=== PATIENT | female | born 1950 | race Caucasian/White ===

== ENCOUNTER 2016-11-21 08:06 | Inpatient (IN) | payer MEDICARE, BC ==
[~2016-11-21] VITALS: Ht 167.6 cm; Wt 92.1 kg
[~2016-11-21 08:06] MED LIST: ASA PO; COUM5TAB PO; ETANERCEPT IM; HYDR200T42 PO; LORT7.5T3 PO; NEUR600T PO; TAB-TAB PO; iron PO; methotrexate SQ
[2016-11-21 08:08] VITALS: BP 174/94; PULSE 88; RESP 20; TEMP 98.8; O2SAT 95
[2016-11-21] MEDS ORDERED: CIMZ200K SQ (08:34)
[2016-11-21] MEDS ORDERED: METH0.35 SQ (08:37)
[2016-11-21] MEDS ORDERED: ONDANSETRON HCL 4 MG/2 ML VIAL IVP ONE (08:45)
[2016-11-21] MEDS ORDERED: MORPHINE SULFATE 8 MG/ML INJ IV PUSH ONE (08:45)
[2016-11-21 08:47] LABS: AUTOMATED NEUTROPHIL # 13.1 TH/MM3 (1.8-7.7); BASOPHIL % 0.3 % (0.0-2.0); EOSINOPHIL # 0.1 TH/MM3 (0-0.4); EOSINOPHIL % 0.4 % (0.0-4.0); HEMATOCRIT 44.8 % (35.0-46.0); HEMO FLAGS DIFF FINAL; LYMPH % 8.1 % (9.0-44.0); LYMPHOCYTE # 1.3 TH/MM3 (1.0-4.8); MEAN CELL VOLUME 88.8 FL (80.0-100.0); MEAN CORPUSCULAR HEMOGLOBIN 29.7 PG (27.0-34.0); MEAN CORPUSCULAR HGB CONC 33.4 % (32.0-36.0); MONO % 7.1 % (0.0-8.0); NEUT % 84.1 % (16.0-70.0); PLATELET COUNT 224 TH/MM3 (150-450); RED BLOOD COUNT 5.04 MIL/MM3 (4.00-5.30); RED CELL DISTRIBUTION WIDTH 14.3 % (11.6-17.2); WHITE BLOOD COUNT 15.6 TH/MM3 (4.0-11.0)
--- NOTE | 2016-11-21 08:55 | PD ---
HPI Chief Complaint: Abdominal Pain Time Seen by Provider: 08:32 Travel History International Travel<30 days: No Contact w/Intl Traveler<30days: No Traveled to known affect area: No History of Present Illness HPI 66-year-old female presents with upper abdominal pain that started on Friday. She states she went to see her primary yesterday and had blood work done and was supposed to have a CAT scan today but given she felt worse she elected to come here. She states she did not have the CAT scan yet. Quality of pain comes in waves and will get sharp. She denies recurrent history of this. She denies other concurrent complaints other than nausea. She denies any migration of the pain. Severity is moderate. PFSH Past Medical History Arthritis: Yes Blood Disorders: No Cancer: No Cardiovascular Problems: No Endocrine: No Genitourinary: No Immune Disorder: Yes Musculoskeletal: Yes Neurologic: No Psychiatric: No Reproductive: No Respiratory: No Tetanus Vaccination: < 5 Years Influenza Vaccination: Yes ?: Not Menopausal: Yes Past Surgical History Abdominal Surgery: Yes (gallbladder removed) Body Medical Devices: right hip replacement Joint Replacement: Yes (dave hips) Pacemaker: No Social History Alcohol Use: No Tobacco Use: No Substance Use: No Allergies-Medications (Allergen,Severity, Reaction): Coded Allergies: Bee Sting (Verified Allergy, Severe, SWELLING AT SITE OF STING, 08/23/08) Uncoded Allergies: GOLD SHOTS (Allergy, Severe, caused common bile blockage, 08/17/08) Reported Meds & Prescriptions Reported Meds & Active Scripts Active Reported Rasuvo (Methotrexate (Antirheumatic)) 20 Mg/0.4 Ml Inj 0.8 Ml SQ Q7D Cimzia (2 syringe) Kit Inj (Certolizumab Pegol Inj) 200 Mg/Ml Kit 400 Mg SQ Q30D Administer 2 syringes (400 mg) to separate sites. Review of Systems Except as stated in HPI: all other systems reviewed are Neg Physical Exam Narrative GENERAL: Well-nourished, well-developed patient. SKIN: Warm and dry. HEAD: Normocephalic and atraumatic. EYES: No injection or drainage. ENT: No nasal drainage noted. NECK: Supple, trachea midline. CARDIOVASCULAR: Regular rate and rhythm RESPIRATORY: Breath sounds equal bilaterally. No accessory muscle use. GASTROINTESTINAL: Abdomen soft, mild tenderness to bilateral upper quadrants, nondistended. EXTREMITIES: No edema. NEUROLOGICAL: Awake and alert. Moves all extremities. Normal speech. Data Data Last Documented VS Vital Signs Date Time Temp Pulse Resp B/P Pulse Ox O2 Delivery O2 Flow Rate FiO2 11/21/16 08:08 98.8 88 20 174/94 95 Room Air Orders Complete Blood Count With Diff (11/21/16 08:33) Comprehensive Metabolic Panel (11/21/16 08:33) Urinalysis - C+S If Indicated (11/21/16 08:33) Lipase (11/21/16 08:33) Ct Abd/Pel W Iv Contrast(Rout) (11/21/16 ) Iv Access Insert/Monitor (11/21/16 08:33) Ondansetron Inj (Zofran Inj) (11/21/16 08:45) Morphine Inj (Morphine Inj) (11/21/16 08:45) Iohexol 350 Inj (Omnipaque 350 Inj) (11/21/16 09:43) Amylase (11/21/16 10:20) Admit Order (Ed Use Only) (11/21/16 10:22) Labs Laboratory Tests Test 11/21/16 08:30 White Blood Count 15.6 TH/MM3 Red Blood Count 5.04 MIL/MM3 Hemoglobin 15.0 GM/DL Hematocrit 44.8 % Mean Corpuscular Volume 88.8 FL Mean Corpuscular Hemoglobin 29.7 PG Mean Corpuscular Hemoglobin 33.4 % Concent Red Cell Distribution Width 14.3 % Platelet Count 224 TH/MM3 Mean Platelet Volume 8.4 FL Neutrophils (%) (Auto) 84.1 % Lymphocytes (%) (Auto) 8.1 % Monocytes (%) (Auto) 7.1 % Eosinophils (%) (Auto) 0.4 % Basophils (%) (Auto) 0.3 % Neutrophils # (Auto) 13.1 TH/MM3 Lymphocytes # (Auto) 1.3 TH/MM3 Monocytes # (Auto) 1.1 TH/MM3 Eosinophils # (Auto) 0.1 TH/MM3 Basophils # (Auto) 0.0 TH/MM3 CBC Comment DIFF FINAL Differential Comment Sodium Level 137 MEQ/L Potassium Level 3.8 MEQ/L Chloride Level 105 MEQ/L Carbon Dioxide Level 23.4 MEQ/L Anion Gap 9 MEQ/L Blood Urea Nitrogen 12 MG/DL Creatinine 0.53 MG/DL Estimat Glomerular Filtration 115 ML/MIN Rate Random Glucose 112 MG/DL Calcium Level 9.2 MG/DL Total Bilirubin 1.6 MG/DL Aspartate Amino Transf 22 U/L (AST/SGOT) Alanine Aminotransferase 30 U/L (ALT/SGPT) Alkaline Phosphatase 122 U/L Total Protein 7.8 GM/DL Albumin 3.5 GM/DL Amylase Level 59 U/L Lipase 178 U/L MDM Medical Decision Making Medical Screen Exam Complete: Yes Emergency Medical Condition: Yes Medical Record Reviewed: Yes (past history confirm) Interpretation(s) CBC & BMP Diagram 11/21/16 08:30 Last 24 hours Impressions Abdomen/Pelvis CT 11/21/16 0000 Signed Impressions: Service Date/Time: November 09:30 - CONCLUSION: 1. Findings consistent with mild pancreatitis without evidence for peripancreatic fluid collection, pancreatic necrosis or other complications. Mild pancreatitis based on CT severity index of 2 (2: 2. inflamation without collection, 0:no necrosis). Reji Romo MD Differential Diagnosis Gastritis, pancreatitis, stone Narrative Course Will check blood work, urinalysis, CT scan and dose with morphine and Zofran and reevaluate ed workup with pancreatitis, patient updated and agrees to admission Physician Communication Physician Communication dr tate agrees to admit Diagnosis Primary Impression: Pancreatitis Qualified Code: K85.90 - Acute pancreatitis without infection or necrosis, unspecified pancreatitis type Admitting Information Admitting Physician Requests: Observation Brenda Nicole MD Nov 21, 2016 08:55
[2016-11-21 09:00] LABS: ANION GAP 9 MEQ/L (5-15); AST (GOT) 22 U/L (15-37); BICARBONATE 23.4 MEQ/L (21.0-32.0); BLOOD UREA NITROGEN 12 MG/DL (7-18); CHLORIDE 105 MEQ/L (98-107); GLOMERULAR FILTRATION RATE 115 ML/MIN (>89); POTASSIUM 3.8 MEQ/L (3.5-5.1); SODIUM (NA) 137 MEQ/L (136-145)
[2016-11-21 09:01] LABS: ALT (GPT) 30 U/L (10-53)
[2016-11-21 09:03] LABS: ALKALINE PHOSPHATASE 122 U/L (45-117); TOTAL BILIRUBIN ADULT 1.6 MG/DL (0.2-1.0)
[2016-11-21] MEDS ORDERED: IOHEXOL 350 MG/ML 10 ML VIAL (for RAD DIAG) IV ONE (09:43)
--- NOTE | 2016-11-21 09:56 | RADRPT ---
EXAM DATE/TIME: 11/21/2016 09:30 [facility] COMPARISON: No previous studies available for comparison. INDICATIONS : Mid abdominal pain radiating to back. IV CONTRAST: 92 cc Omnipaque 350 (iohexol) IV ORAL CONTRAST: No oral contrast ingested. RADIATION DOSE: 11.48 CTDIvol (mGy) MEDICAL HISTORY : None SURGICAL HISTORY : Cholecystectomy. ENCOUNTER: Initial ACUITY: 4 - 6 days PAIN SCALE: 4/10 LOCATION: Bilateral upper quadrant TECHNIQUE: Volumetric scanning of the abdomen and pelvis was performed. Using automated exposure control and ad justment of the mA and/or kV according to patient size, radiation dose was kept as low as reasonably achievable to obtain optimal diagnostic quality images. DICOM format image data is available electro nically for review and comparison. FINDINGS: LOWER LUNGS: Minimal bibasal atelectasis. LIVER: Homogeneous density without lesion. There is no dilation of the biliary tree. Gallbladder is surgica lly absent. SPLEEN: 2 subcentimeter hypodense lesions are noted in the spleen which are too small to fully characterize. The spleen is otherwise unremarkable. Splenic vein is patent. PANCREAS: There is peripancreatic inflammatory stranding in the region of the pancreatic head and proximal body . No significant pancreatic ductal dilatation or tail atrophy. No abnormal fluid collections or pancr eatic calcifications. KIDNEYS: Normal in size and shape. There is no mass, stone or hydronephrosis. ADRENAL GLANDS: Within normal limits. VASCULAR: There is no aortic aneurysm. SMA and SMV are patent. Portal vein is patent. BOWEL/MESENTERY: The stomach, small bowel, and colon demonstrate no acute abnormality. There is no free intraperitone al air or fluid. Appendix is visualized and normal in appearance. ABDOMINAL WALL: Within normal limits. RETROPERITONEUM: There is no lymphadenopathy. BLADDER: Decompressed and suboptimally visualized REPRODUCTIVE: Within normal limits. INGUINAL: There is no lymphadenopathy or hernia. MUSCULOSKELETAL: Bilateral hip arthroplasties in place. CONCLUSION: 1. Findings consistent with mild pancreatitis without evidence for peripancreatic fluid collection, p ancreatic necrosis or other complications. Mild pancreatitis based on CT severity index of 2 (2: 2. inflamation without collection, 0:no necrosis). Reji Romo MD on November 21, 2016 at 9:45 Board Certified Radiologist. This report was verified electronically.
[2016-11-21 10:15] VITALS: BP 160/93; PULSE 84; RESP 16; O2SAT 95
[2016-11-21] MEDS ORDERED: LACTULOSE SYRUP 20 GM/30 ML CUP PO PRN (10:30)
[2016-11-21] MEDS ORDERED: NALOXONE HCL 0.4 MG/ML AMP IV PRN (10:30)
[2016-11-21] MEDS ORDERED: SODIUM CHLORIDE 0.9% FLUSH 10 ML FLUSH IV FLUSH PRN (10:30)
[2016-11-21] MEDS ORDERED: SENNOSIDES 8.6 MG TAB PO PRN (10:30)
[2016-11-21] MEDS ORDERED: BISACODYL 10 MG SUPP RECTAL PRN (10:30)
[2016-11-21] MEDS ORDERED: MORPHINE SULFATE 4 MG/ML INJ IV PUSH PRN (10:30)
[2016-11-21] MEDS ORDERED: MAGNESIUM HYDROXIDE SUSP 30 ML CUP PO PRN (10:30)
[2016-11-21] MEDS ORDERED: ONDANSETRON HCL 4 MG/2 ML VIAL IVP PRN (10:30)
[2016-11-21] MEDS: HEPARIN SODIUM - SQ 10,000 UNITS/ML VIAL SQ SCH ×2 (11:00→20:58)
[2016-11-21] MEDS: SODIUM CHLOR 0.9% 1000 ML INJ 1,000 ML IV SCH ×2 (11:20→21:41)
[2016-11-21 13:00] VITALS: BP 167/78; PULSE 83; RESP 20; TEMP 98.7; O2SAT 95
[2016-11-21 13:12] LABS: BACTERIA, URINE OCC /hpf; BLOOD, URINE NEG (NEG); GLUCOSE,URINE NEG (NEG); KETONE, URINE 80 mg/dL (NEG); NITRITE,URINE NEG (NEG); PH, URINE 6.5 (5.0-8.5); SQUAMOUS EPITHELIAL CELL URINE 7 /hpf (0-5); TRANSITIONAL EPI CELLS, URINE <1 /hpf; URINE COLOR YELLOW (YELLW/STRAW)
[2016-11-21 13:21] LABS: COMMENT (UR) CULT NOT INDICATED; CULTURE IF INDICATED CULT NOT INDICATED
[2016-11-21 16:00] VITALS: BP 141/76; PULSE 87; RESP 18; TEMP 99.1; O2SAT 93
--- NOTE | 2016-11-21 17:10 | MH ---
cc: CHAPARRITA WADDELL MD DATE OF ADMISSION: 11/21/2016 DATE OF : 02/17/1915 CHIEF COMPLAINT Abdominal pain radiating into the lower back. HISTORY OF TRAVEL: In the last 30 days, none. HISTORY OF PRESENT ILLNESS This pleasant 66-year-old white female who was in her usual state of health up until approximately 4 days ago. She states that she started an acute onset of abdominal pain. Noted to be generalized in her upper abdomen. She states that the pain radiates into her back. Describes it as a burning, sharp burning sensations. The patient did note some mild grade fever approximately 100, the day before yesterday. She did have some mild nausea this a.m. but no vomiting. She states no weight loss and no acute changes in her appetite, up until these past few days. The patient does have a significant history of rheumatoid arthritis and sees her foreign food specialty cook for follow up appointments as an outpatient. She takes her medications for her Rheumatoid arthritis. Which is Cimzia, 400 mg subcutaneously every month and Rafuvo 0.8, subcutaneously every seven days. The patient denies any chest pain, no shortness of breath, She denies any previous abdominal pain or history of abdominal issues. She denies any headache. The patient according to the record did see her PCP yesterday and had blood work that was due to have a CT scan but stated that pain worsened and she came to the emergency room for further evaluation. PAST MEDICAL HISTORY: Rheumatoid arthritis Generalized arthritis Osteoarthritis. PAST SURGICAL HISTORY Gallbladder removed. Right hip replacement. Joint replacement bilateral hips. ALLERGIES BEE STINGS GOLD SHOTS MEDICATIONS: Reported; Rafuvo Cimzia SOCIAL HISTORY The patient is currently has her at her bedside, lives in her own home. Denies any alcohol, tobacco or illicit drug use. She is retired service secretary. PHYSICAL EXAMINATION: VITAL SIGNS: Temperature is 98, seventh pulse 83, respirations 20, blood pressure 167/78 initially 174/94 on emergency room admission O2 sat 95, currently on room air. IN GENERAL: Obese, white female looks to be her stated age resting in the bed. She is awake and a fairly good historian. SKIN: The skin is very tight, [place], warm and dry. HEAD, EYES, EARS, NOSE, AND THROAT: Atraumatic, normocephalic, possible mild scleral icterus. The patient is very gold tone talbot next to her sclera. Mucous membranes are slightly dry, tongue is mildly coated. No drainage from her eyes or nasal cavity. NECK: The neck is supple. CARDIOVASCULAR SYSTEM: S1-S2, Rhythm and rate are regular. no murmurs, rubs or gallops. She has no edema no apparent disease her pulses are intact. RESPIRATORY: Essentially clear anterior, posterior, no wheezes, rales or rhonchi. ABDOMEN: The abdomen is round, soft. Mild tenderness bilateral upper quadrants. No guarding. EXTREMITIES: No obvious deformities. No edema. Pulses are intact. Mild deformity is noted in her hands in the joint spaces. GENITOURINARY: Deferred. NEUROLOGICALLY: Awake, alert, a fairly good historian. Hand honing machine operator production were equal. with correct her extremities mild deformities noted in her hands in the joint spaces. Hand honing machine operator production are generally weakened secondary to her rheumatoid arthritis. She moves all extremities on command. Speech is clear. PSYCHOLOGICAL: Appropriate mood and effect. DIAGNOSTIC DATA: White blood count 15.6, red blood cells 5.04, hemoglobin 15, hematocrit 44.8, neutrophil percentage left shift, 84.1. Lymphocytes 8.1. Chemistry sodium 137 potassium for a point chloride 105, CO2 23.4, amnion gap 9, BUN 12, creatinine 0.53, glomerular filtration rate 115, random glucose 112, calcium 9.2, total bilirubin 1.8, alkaline phosphatase 122, AST 22, ALT 30, total protein 7.8, albumin 3.5. Amylase 59, lipase 178. Urine is yellow clear, negative for glucose, occult blood and not in the right and small amount of leukocyte esterase was urobilinogen to occasional bacteria to be gravity greater than 1.050, pH of 6.5. IMAGING STUDIES Abdomen, pelvis CT findings consistent with mild pancreatitis without evidence of pancreatic fluid collection pancreatic necrosis or other complications. This was placed on a CT severity index of 2, inflammation without collection, no necrosis. ASSESSMENT/PLAN: 1. Pancreatitis. 2. History of rheumatoid arthritis. 3. Leukocytosis, probably secondary to number 1. 4. Abdominal pain radiating into the lower back, failed outpatient treatment, pain uncontrollable. PLAN: 1. The plan is to admit, maintain IV access and ECG monitoring, pain management. 2. Bowel regimen, heparin subcu for DVT prophylaxis. 3. We will monitor her blood levels, and draw hepatic function, lipase blood levels in the morning along with a Basic metabolic profile and Complete blood count. 4. As needed medications for nasal. 5. General hydration with IV fluids 6. Clear liquid diet. 7. Her activity can be out of bed with assistance. 8. Vital signs q four hours. 9. We will consult gastroenterology for his expert opinion. 10. Patients course of treatment will depend on her findings. 11. The patient is full code, full aggressive care. Chaparrita Waddell MD DICTATED BY: SHAILESH Ireland/adriana /1:58 PM /4:24 PM seen, examined by myself, Dr Waddell, today Discussed with patient and her at her bedside Possible pancreatitis Etiology unclear Prior liver disease, question cirrhosis Pain control Consult GI Discussed with mid level provider Discussed with emergency physician The exam, history, and the medical decision-making described in the above note were completed with the assistance of the mid-level provider. I reviewed the findings presented. I attest that I had a [id number] encounter with the patient on the same day, and personally performed and documented my assessment and findings in the medical record. ANNIA
[2016-11-21] MEDS ORDERED: ACETAMINOPHEN 325 MG TAB PO PRN (18:45)
[2016-11-21 19:39] VITALS: BP 169/78; PULSE 90; RESP 17; TEMP 101.5; O2SAT 95
[2016-11-21] MEDS: SODIUM CHLORIDE 0.9% FLUSH 10 ML FLUSH IV FLUSH SCH (21:00)
[2016-11-21] MEDS: DOCUSATE SODIUM 50 MG/SENNA 8.6 MG TAB PO SCH (21:41)
[2016-11-21 23:53] VITALS: BP 138/67; PULSE 88; RESP 17; TEMP 100.6; O2SAT 94
[2016-11-22] VITALS (7 sets, daily range): BP systolic 143–184; BP diastolic 74–88; PULSE 76–86; RESP 17–20; TEMP 97–99.5; O2SAT 93–96
[2016-11-22] MEDS ORDERED: LORazepam 2 MG/ML VIAL IV PUSH SCH (02:00)
[2016-11-22] MEDS: SODIUM CHLOR 0.9% 1000 ML INJ 1,000 ML IV SCH ×2 (05:21→16:21)
--- NOTE | 2016-11-22 07:22 | MB ---
cc: HARRIET BEACH M.D. DATE OF CONSULTATION 11/21/[address] Aneudy Vaughan REASON FOR CONSULTATION Abdominal pain HISTORY Ms. García is a very pleasant 66-year-old lady who was in her usual state of health until four days ago when she started having severe abdominal pain noted to mostly in the upper abdomen and periumbilical. She stated the pain radiates to the back with a burning and sharp sensation. She cannot correlate with eating. She did have some nausea. No vomiting. No melena, hematemesis or hematochezia. She denies taking any new medications. She has rheumatoid arthritis. She has been on Cimzia every 8-weeks and methotrexate subcutaneous every seven days. Never had this type of problem in the past. She did have a colonoscopy with Dr. Barker a few years ago that was negative. Never had an endoscopy. She denies any alcohol use. She believes her triglycerides are normal. She had a recent physical with her primary care doctor and that was normal. The patient reports that she was given gold shots the beginning of treatment for rheumatoid arthritis. She developed what appeared to be hepatic failure and was hospitalized at that time. She had a cholecystectomy at that time and no stones were noted. PAST MEDICAL HISTORY Remarkable for arthritis, osteoarthritis. PAST SURGICAL HISTORY 1. Cholecystectomy 2. Hip replacement bilateral hips ALLERGIES BEE STINGS AND GOLD SHOTS. MEDICATIONS 1. Rasuvo 2. Cimzia 3. Methotrexate SOCIAL HISTORY . Denies any alcohol or drug use. Retired nursing secretary. REVIEW OF SYSTEMS She denies any fever, chills, weight loss or weight gain. ENT: No alteration in baseline hearing or visual acuity. PULMONARY: Denies any chest pain or shortness of breath. GASTROINTESTINAL: As above. GENITOURINARY: Denies dysuria or hematuria. HEMATOLOGIC: No history of anemia or bleeding disorder. SKIN: No alteration in baseline skin lesion. NEUROLOGIC: No history of TIA or CVA kind of symptoms. PHYSICAL EXAM On clinical exam, she is sitting comfortably in bed in no acute distress. VITAL SIGNS: Temperature is 99.1, pulse 87, respiration 18, blood pressure 141/76, saturation 93. HEAD, EYES, EARS, NOSE, AND THROAT: PERRLA. NECK: No JVD or lymphadenopathy. CHEST: Clear to auscultation and palpation. CARDIOVASCULAR: S1 and S2. No murmur. ABDOMEN: Soft, obese. Tender in the epigastrium. INSPECTOR PRODUCTION PLASTIC PARTS: Awake, alert, oriented x3. No focal signs identified. EXTREMITIES: She has deformed extremities. LABORATORY DATA Hemoglobin is 15, white count of 15.6, platelets 223. Her glucose was 112, total bilirubin 1.6, AST and ALT normal. Alkaline phosphatase 122. The patient had a CT of the abdomen and pelvis which showed mild pancreatitis without evidence of peripancreatic fluid collection. IMPRESSION Acute pancreatitis, etiology unclear, possibly medication-induced versus passed stone. Less likely other etiologies, also autoimmune etiology, has to be excluded as the patient has rheumatoid arthritis. RECOMMENDATIONS Clear liquid diet, MRCP, IgG 4 and lipid profile. Further recommendation will depend on the patient's clinical status and the above results. I would like to thank Dr. Vaughan for referring her to our office for consultation. MD JACK Ledezma/HUNTER /8:38 PM /7:08 AM
[2016-11-22 07:50] LABS: AUTOMATED NEUTROPHIL # 11.9 TH/MM3 (1.8-7.7); BASOPHIL # 0.1 TH/MM3 (0-0.2); BASOPHIL % 0.4 % (0.0-2.0); EOSINOPHIL # 0.1 TH/MM3 (0-0.4); EOSINOPHIL % 0.5 % (0.0-4.0); HEMATOCRIT 38.7 % (35.0-46.0); HEMO FLAGS DIFF FINAL; LYMPH % 8.5 % (9.0-44.0); LYMPHOCYTE # 1.3 TH/MM3 (1.0-4.8); MEAN CELL VOLUME 89.6 FL (80.0-100.0); MEAN CORPUSCULAR HEMOGLOBIN 29.2 PG (27.0-34.0); MEAN CORPUSCULAR HGB CONC 32.6 % (32.0-36.0); MONO % 10.2 % (0.0-8.0); NEUT % 80.4 % (16.0-70.0); PLATELET COUNT 197 TH/MM3 (150-450); RED BLOOD COUNT 4.32 MIL/MM3 (4.00-5.30); RED CELL DISTRIBUTION WIDTH 14.3 % (11.6-17.2); WHITE BLOOD COUNT 14.8 TH/MM3 (4.0-11.0)
[2016-11-22 08:36] LABS: BICARBONATE 22.5 MEQ/L (21.0-32.0); INDIRECT BILIRUBIN 1.2 MG/DL (0.0-0.8); POTASSIUM 3.7 MEQ/L (3.5-5.1)
[2016-11-22] MEDS: SODIUM CHLORIDE 0.9% FLUSH 10 ML FLUSH IV FLUSH SCH ×2 (09:12→20:41)
--- NOTE | 2016-11-22 09:26 | HHI.PR ---
Subjective Subjective Remarks Awake, alert Resting in bed Taking ice chips and clear liquids, 1 episode of vomiting last night Low-grade fever 99.5 (Janell Byrnes) Review of Systems Constitutional Constitutional: Fatigue (mild), Weakness (mild) Constitutional Remarks 10 point ROS done positives noted (Janell Byrnes) GI/Abdomen GI/Abdomen Remarks Upper abdominal dull ache, nonradiating (Janell Byrnes) Musculoskeletal MS: Stiffness (occasional) (Janell Byrnes) Psychiatric Psychiatric: Normal Mood, Anxiety (mild) (Janell Byrnes) Vitals/Results Vital Signs Vital Signs Date Time Temp Pulse Resp B/P Pulse Ox O2 Delivery O2 Flow Rate FiO2 11/22/16 09:13 98.7 84 20 184/86 93 11/22/16 03:57 99.5 80 17 143/74 95 11/21/16 23:53 100.6 88 17 138/67 94 11/21/16 19:39 101.5 90 17 169/78 95 11/21/16 16:00 99.1 87 18 141/76 93 11/21/16 13:00 98.7 83 20 167/78 95 11/21/16 10:15 84 16 160/93 95 Room Air (Janell Byrnes) CBC/BMP: 11/22/16 0710 11/22/16 0710 Lab Results Laboratory Tests Test 11/21/16 11/22/16 12:52 07:10 Urine Color YELLOW Urine Turbidity CLEAR Urine pH 6.5 Urine Specific [place] GREATER THAN 1.050 Urine Protein 30 mg/dL Urine Glucose (UA) NEG mg/dL Urine Ketones 80 mg/dL Urine Occult Blood NEG Urine Nitrite NEG Urine Bilirubin NEG Urine Urobilinogen LESS THAN 2.0 MG/DL Urine Leukocyte Esterase SMALL Urine WBC 6 /hpf Urine Squamous Epithelial 7 /hpf Cells Urine Transitional Epithelial <1 /hpf Cells Urine Bacteria OCC /hpf Microscopic Urinalysis Comment CULT NOT INDICATED White Blood Count 14.8 TH/MM3 Red Blood Count 4.32 MIL/MM3 Hemoglobin 12.6 GM/DL Hematocrit 38.7 % Mean Corpuscular Volume 89.6 FL Mean Corpuscular Hemoglobin 29.2 PG Mean Corpuscular Hemoglobin 32.6 % Concent Red Cell Distribution Width 14.3 % Platelet Count 197 TH/MM3 Mean Platelet Volume 8.9 FL Neutrophils (%) (Auto) 80.4 % Lymphocytes (%) (Auto) 8.5 % Monocytes (%) (Auto) 10.2 % Eosinophils (%) (Auto) 0.5 % Basophils (%) (Auto) 0.4 % Neutrophils # (Auto) 11.9 TH/MM3 Lymphocytes # (Auto) 1.3 TH/MM3 Monocytes # (Auto) 1.5 TH/MM3 Eosinophils # (Auto) 0.1 TH/MM3 Basophils # (Auto) 0.1 TH/MM3 CBC Comment DIFF FINAL Differential Comment Sodium Level 138 MEQ/L Potassium Level 3.7 MEQ/L Chloride Level 105 MEQ/L Carbon Dioxide Level 22.5 MEQ/L Anion Gap 11 MEQ/L Blood Urea Nitrogen 10 MG/DL Creatinine 0.41 MG/DL Estimat Glomerular Filtration 155 ML/MIN Rate Random Glucose 79 MG/DL Calcium Level 8.5 MG/DL Total Bilirubin 2.0 MG/DL Direct Bilirubin 0.8 MG/DL Indirect Bilirubin 1.2 MG/DL Aspartate Amino Transf 19 U/L (AST/SGOT) Alanine Aminotransferase 24 U/L (ALT/SGPT) Alkaline Phosphatase 111 U/L Total Protein 6.5 GM/DL Albumin 2.5 GM/DL Lipase 85 U/L (Janell Byrnes M. BAND MAKER) Physical Exam General General Appearance: Well Developed, Well Nourished, Anxious, Obese (mild) ( Janell Byrnes M. BAND MAKER) Eyes Eye Exam: Pupils Equal, Pupils Reactive (Janell Byrnes M. BAND MAKER) Ears & Nose Ears & Nose Exam: Nasal Mucosa [place] (Janell Byrnes M. BAND MAKER) Throat Throat Exam: Oral Mucosa [place] & Moist (Janell Byrnes M. BAND MAKER) Neck Neck Exam: Neck Supple ([place] M. BAND MAKER) Pulmonary Resp Exam: Clear Bilaterally ([place] M. BAND MAKER) Cardiology CV Exam: Regular ([place],Susan M. BAND MAKER) Gastrointestinal/Abdomen GI Exam: Soft GI Remarks Mild tenderness dual ache upper abdomen nonradiating this a.m. (Janell Byrnes M. BAND MAKER) Musculoskeletal MS Exam: Joints Intact (no mild enlargement hands extremities, RA) (Janell Byrnes BAND MAKER) Integumentary Skin Exam: Clear, Warm, Dry, Intact Skin Remarks Ay (Janell Byrnes BAND MAKER) Extremeties Extremities Exam: No Edema (Janell Byrnes BAND MAKER) Neurologic Neuro Exam: Alert, Awake, Oriented, Speech Clear, Moving All Extremities ( Janell Byrnes. BAND MAKER) Assessment/Plan Assessment/Plan 1. Pancreatitis. 2. History of rheumatoid arthritis. 3. Leukocytosis, probably secondary to number 1. 4. Abdominal pain radiating into the lower back, failed outpatient treatment, pain uncontrollable. Vital signs reviewed, low-grade temp 99 5, borderline hypertension a.m. systolic greater than 180, other trends normal range Labs reviewed, IgG4, 1150, lipid profile Hypertension, added when necessary Vasotec for systolic greater than 180, probable stress related, we'll continue to monitor Pancreatitis, medications versus stone, appreciate GI consult and input currently maintaining patient on clear liquids check and labs which include MRCP , lipids, IGG4 level, Patient continues with upper abdominal discomfort considers it a dull ache, nonradiating this a.m., states the intensity is decreased but still noticeable Encourage patient to increase her activity, sitting up in chair natalie rai in room with assistance for her safety Nutrition clear liquids discussed. Will follow GI expert opinion for further needs, plan MRCP today Comorbidities including her RA, monitored for medical management, meds currently on hold DVT prophylaxis PUD prophylaxis Discussed with patient Discussed with nurse Discussed with Dr. Coppola, seen on his behalf, time 25 minutes with patient Discharge planning hopefully within the next day or 2 (Janell Byrnes) Assessment/Plan seen, examined by myself, Dr Vaughan, today Discussed with patient She still has some epigastric pain Still on IV fluids and clear liquids MRCP showed evidence of pancreatitis Etiology of pancreatitis unknown Lipids unremarkable Admit to in patient We will follow advice from GI Discussed with mid level provider The exam, history, and the medical decision-making described in the above note were completed with the assistance of the mid-level provider. I reviewed the findings presented. I attest that I had a [id number] encounter with the patient on the same day, and personally performed and documented my assessment and findings in the medical record. (Chaparrita Vaughan MD) Janell Byrnes Nov 22, 2016 09:26 Chaparrita Vaughan MD Nov 22, 2016 14:48
[2016-11-22] MEDS ORDERED: ENALAPRILAT 1.25 MG/ML VIAL IV PUSH PRN (09:30)
--- NOTE | 2016-11-22 10:33 | RADRPT ---
EXAM DATE/TIME: 11/22/2016 09:43 [place] COMPARISON: CT ABDOMEN & PELVIS W CONTRAST, November 21, 2016, 9:30. INDICATIONS : Pancreatitis. MEDICAL HISTORY : None. SURGICAL HISTORY : Total knee replacement, right. Cholecystectomy. Hip replacements bilateral. ENCOUNTER: Initial ACUITY: 2 day PAIN SCORE: 4/10 LOCATION: abdomen TECHNIQUE: Multiplanar, multisequence magnetic resonance imaging of the abdomen was performed. High-resolution 3D dataset was utilized to reconstruct maximum-intensity projection (MIP) images. FINDINGS: INTRAHEPATIC BILE DUCTS: Within normal limits. No significant anatomical variant is present. EXTRAHEPATIC BILE DUCTS: The common hepatic duct measures 11 mm and distal common bile duct measures 5 mm. No stone or filling defect is identified. GALLBLADDER: Surgically absent. LIVER: The liver measures 20.6 cm. There may be a mild degree of steatosis. No focal liver lesion is seen on this noncontrast exam. PANCREAS: The main pancreatic duct is normal in size. There is no significant anatomical variant. There is inf lammation around the pancreatic head and uncinate process. No mass is visualized on this non-contras t exam. OTHER: The remaining visualized structures demonstrate no acute abnormality on this non-contrast exam. There are a few cysts within the spleen measuring up to 4 mm. A small hiatal hernia is present. CONCLUSION: 1. The biliary tree has a normal appearance in this patient post cholecystectomy. No stones are visua lized. 2. Inflammatory changes around the head and uncinate process of the pancreas characteristic of acute pancreatitis. Avinash Gonzalez MD on November 22, 2016 at 10:25 Board Certified Radiologist. This report was verified electronically.
[2016-11-22] MEDS: DOCUSATE SODIUM 50 MG/SENNA 8.6 MG TAB PO SCH ×2 (11:44→20:40)
[2016-11-22] MEDS: HEPARIN SODIUM - SQ 10,000 UNITS/ML VIAL SQ SCH ×2 (11:44→20:08)
--- NOTE | 2016-11-22 17:31 | HHI.GIFU ---
Subjective Remarks Pt resting in bed, says she feels much better. tolerating clears. Minimal pain. No nausea. Ambulating. (Guillermina Welsh) Objective Vitals I&O Vital Signs Date Time Temp Pulse Resp B/P Pulse Ox O2 Delivery O2 Flow Rate FiO2 11/22/16 16:39 99.0 80 19 172/84 95 11/22/16 12:33 98.5 76 18 175/88 94 11/22/16 09:19 148/76 11/22/16 09:13 98.7 84 20 184/86 93 11/22/16 03:57 99.5 80 17 143/74 95 11/21/16 23:53 100.6 88 17 138/67 94 11/21/16 19:39 101.5 90 17 169/78 95 Laboratory Laboratory Tests Test 11/22/16 07:10 White Blood Count 14.8 Red Blood Count 4.32 Hemoglobin 12.6 Hematocrit 38.7 Mean Corpuscular Volume 89.6 Mean Corpuscular Hemoglobin 29.2 Mean Corpuscular Hemoglobin 32.6 Concent Red Cell Distribution Width 14.3 Platelet Count 197 Mean Platelet Volume 8.9 Neutrophils (%) (Auto) 80.4 Lymphocytes (%) (Auto) 8.5 Monocytes (%) (Auto) 10.2 Eosinophils (%) (Auto) 0.5 Basophils (%) (Auto) 0.4 Neutrophils # (Auto) 11.9 Lymphocytes # (Auto) 1.3 Monocytes # (Auto) 1.5 Eosinophils # (Auto) 0.1 Basophils # (Auto) 0.1 CBC Comment DIFF FINAL Differential Comment Sodium Level 138 Potassium Level 3.7 Chloride Level 105 Carbon Dioxide Level 22.5 Anion Gap 11 Blood Urea Nitrogen 10 Creatinine 0.41 Estimat Glomerular Filtration 155 Rate Random Glucose 79 Calcium Level 8.5 Total Bilirubin 2.0 Direct Bilirubin 0.8 Indirect Bilirubin 1.2 Aspartate Amino Transf 19 (AST/SGOT) Alanine Aminotransferase 24 (ALT/SGPT) Alkaline Phosphatase 111 Total Protein 6.5 Albumin 2.5 Lipase 85 Imaging Last Impressions Cholangiopancreatography MRI 11/22/16 0000 Signed Impressions: Service Date/Time: Tuesday, November 22, 2016 09:43 - CONCLUSION: 1. The biliary tree has a normal appearance in this patient post cholecystectomy. No stones are visualized. 2. Inflammatory changes around the head and uncinate process of the pancreas characteristic of acute pancreatitis. Avinash Gonzalez MD Abdomen/Pelvis CT 11/21/16 0000 Signed Impressions: Service Date/Time: November 09:30 - CONCLUSION: 1. Findings consistent with mild pancreatitis without evidence for peripancreatic fluid collection, pancreatic necrosis or other complications. Mild pancreatitis based on CT severity index of 2 (2: 2. inflamation without collection, 0:no necrosis). Reji Romo MD Physical Exam HEENT: PERRL; normocephalic; atraumatic; no jaundice. CHEST: CTA CARDIAC: RRR ABDOMEN: Soft, nondistended, mild LUQ TTP; no hepatosplenomegaly; bowel sounds are present in all four quadrants. EXTREMITIES: No clubbing, cyanosis, or edema. SKIN: Normal; no rash; no jaundice. YEAST TENDER: No focal deficits; alert and oriented times three. (Guillermina Welsh) Assessment and Plan Plan ASSESSMENT - acute pancreatitis - etiology unclear, pt denies ETOH, never had before, med induced vs passed stone, will r/o autimmune, pt has RA takes methotrexate, simzia. MRCP shows acute pancreatitis, no stones, biliary tree normal appearance for post cholecystectomy. Tbil 2.0 and rest of LFTs WNL. triglycerides WNL PLAN - IGG4 - continue clears - supportive care This pt seen by myself and Dr Beauchamp and this note is written on her behalf (Guillermina Welsh) Guillermina Welsh Nov 22, 2016 17:31 Sanjana Beauchamp MD Nov 22, 2016 22:14
[2016-11-23] MEDS: SODIUM CHLOR 0.9% 1000 ML INJ 1,000 ML IV SCH ×3 (01:50→22:55)
[2016-11-23 03:56] VITALS: BP 150/81; PULSE 80; RESP 18; TEMP 98.6; O2SAT 95
[2016-11-23 08:13] VITALS: BP 178/80; PULSE 77; RESP 18; TEMP 98.6; O2SAT 96
--- NOTE | 2016-11-23 08:29 | HHI.PR ---
Subjective Subjective Remarks no abd. pain no n/v tolerating clears well moving bowels wants to eat no fever no sob, no cp BP up, 170s, states has no history, usually 130 or less Review of Systems Constitutional Constitutional Remarks 12 point ros completed, negative except as noted above Vitals/Results Intake & Output 11/22/16 11/22/16 11/23/16 15:00 23:00 07:00 Intake Total 1060 ml Balance 1060 ml Intake Oral 1060 ml Vital Signs Vital Signs Date Time Temp Pulse Resp B/P Pulse Ox O2 Delivery O2 Flow Rate FiO2 11/23/16 08:13 98.6 77 18 178/80 96 11/23/16 03:56 98.6 80 18 150/81 95 11/22/16 23:40 98.9 79 18 164/81 94 11/22/16 19:37 97.0 86 18 143/80 96 11/22/16 16:39 99.0 80 19 172/84 95 11/22/16 12:33 98.5 76 18 175/88 94 11/22/16 09:19 148/76 11/22/16 09:13 98.7 84 20 184/86 93 CBC/BMP: 11/22/16 0710 11/22/16 0710 Physical Exam General General Appearance: Well Developed, Well Nourished, No Acute Distress, Comfortable Eyes Eye Exam: Pupils Equal, Pupils Reactive Ears & Nose Ears & Nose Exam: Nasal Mucosa [place] Throat Throat Exam: Oral Mucosa [place] & Moist Neck Neck Exam: Neck Supple Pulmonary Resp Exam: Clear Bilaterally Cardiology CV Exam: Regular Gastrointestinal/Abdomen GI Exam: Soft, Non-Tender, Bowel Sounds Present, Positive Bowel Movement, Non- Distended Musculoskeletal MS Exam: Joints Intact Integumentary Skin Exam: Clear, Warm, Dry, Intact Extremeties Extremities Exam: No Edema, Pedal Pulses Palpable Neurologic Neuro Exam: Alert, Awake, Oriented, Speech Clear, Moving All Extremities, No Focal Deficits Psychiatric Psych Exam: Appropriate Responses VTE Prophylaxis VTE Prophylaxis Device: SCDs VTE Prophylaxis Meds: Heparin PUD Prophylasis PUD Prophylaxis: Protonix Assessment/Plan Assessment/Plan 1. Pancreatitis. 2. History of rheumatoid arthritis. 3. Leukocytosis, probably secondary to number 1. 4. Abdominal pain radiating into the lower back, failed outpatient treatment, pain uncontrollable. 5. Elevated BP, no hx of HTN Plan continue with IVF appreciate GI input S/P MRCP 11/22, evidence of pancreatitis no clear evidence for pancreatitis obstruction vs med induced. 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 today Labs in am poss dc today or tomorrow after GI yessenia D/W RN D/W Dr. Agarwal D/W pt This patient was seen by myself and Dr. Agarwal, this note is written on her behalf. Bia Cohen Nov 23, 2016 08:29
[2016-11-23] MEDS: DOCUSATE SODIUM 50 MG/SENNA 8.6 MG TAB PO SCH ×2 (08:51→22:54)
[2016-11-23] MEDS: SODIUM CHLORIDE 0.9% FLUSH 10 ML FLUSH IV FLUSH SCH ×2 (08:54→21:00)
[2016-11-23] MEDS: HEPARIN SODIUM - SQ 10,000 UNITS/ML VIAL SQ SCH ×2 (10:14→22:55)
[2016-11-23 10:20] VITALS: BP 144/85
[2016-11-23 12:17] VITALS: BP 173/88; PULSE 71; RESP 20; TEMP 97.9; O2SAT 96
[2016-11-23 16:50] VITALS: BP 186/94; PULSE 68; RESP 19; TEMP 97.6; O2SAT 95
--- NOTE | 2016-11-23 19:19 | HHI.GIFU ---
Subjective Remarks Resting in chair. Tolerating liquids. Not having any abdominal pain/nausea. Would like to go home. (UribeMariella Priscillaseble CASH) Objective Vitals I&O Vital Signs Date Time Temp Pulse Resp B/P Pulse Ox O2 Delivery O2 Flow Rate FiO2 11/23/16 16:50 97.6 68 19 186/94 95 11/23/16 12:17 97.9 71 20 173/88 96 11/23/16 10:20 144/85 Manual Cuff/Auscultation 11/23/16 08:13 98.6 77 18 178/80 96 11/23/16 03:56 98.6 80 18 150/81 95 11/22/16 23:40 98.9 79 18 164/81 94 11/22/16 19:37 97.0 86 18 143/80 96 I/O 11/22/16 11/22/16 11/22/16 11/23/16 11/23/16 11/23/16 07:00 15:00 23:00 07:00 15:00 23:00 Intake Total 1060 ml 420 ml Balance 1060 ml 420 ml Intake Oral 1060 ml 420 ml # Voids 1 # Bowel Movements 1 Imaging Last Impressions Cholangiopancreatography MRI 11/22/16 0000 Signed Impressions: Service Date/Time: Tuesday, November 22, 2016 09:43 - CONCLUSION: 1. The biliary tree has a normal appearance in this patient post cholecystectomy. No stones are visualized. 2. Inflammatory changes around the head and uncinate process of the pancreas characteristic of acute pancreatitis. Avinash Gonzalez MD Abdomen/Pelvis CT 11/21/16 0000 Signed Impressions: Service Date/Time: November 09:30 - CONCLUSION: 1. Findings consistent with mild pancreatitis without evidence for peripancreatic fluid collection, pancreatic necrosis or other complications. Mild pancreatitis based on CT severity index of 2 (2: 2. inflamation without collection, 0:no necrosis). Reji Romo MD Physical Exam HEENT: Normocephalic; atraumatic CHEST: CTA CARDIAC: RRR ABDOMEN: Soft, nondistended, nontender; no hepatosplenomegaly; bowel sounds are present in all four quadrants. EXTREMITIES: No clubbing, cyanosis, or edema. SKIN: Normal; no rash; no jaundice. HAND [employer] MAKER: No focal deficits; alert and oriented times three. (Mariella Uribe) Assessment and Plan Plan ASSESSMENT - Acute pancreatitis, 1st episode. No ETOH use. S/P Cholecystectomy. No new medications, although she is on Cimzia (2 years) and Methotrexate (20 eyars). (+) RA. No family hx of pancreatitis. Triglycerides 60. Abdomen/Pelvis CT (11/21/16)----> 1. Findings consistent with mild pancreatitis without evidence for peripancreatic fluid collection, pancreatic necrosis or other complications. Mild pancreatitis based on CT severity index of 2 (2: 2. inflamation without collection, 0:no necrosis). MRCP (11/22/16)----> 1. The biliary tree has a normal appearance in this patient post cholecystectomy. No stones are visualized. 2. Inflammatory changes around the head and uncinate process of the pancreas characteristic of acute pancreatitis. T. Bilirubin 2.0, Direct 0.8, Indirect 1.2, AST 19, ALT 24, Alk Phosph 111. Of note this is more indirect than direct. Clinically doing well- asymptomatic. Tolerating liquids. Would like to eat. ? Autoimmune vs. possible medication, although these are not new medications vs. idiopathic. IgG 4 pending. Will advance diet. If tolerates, okay to d/c home in am with outpatient FU. - Leukocytosis, 14.8. Likely secondary to above - RA, on methotrexate, cimzia PLAN - Low fat diet - PPI - CMP in am - Await IgG 4 - If tolerates diet and remains asymptomatic, okay to d/c home in am with outpatient fu - Pt seen and examined by Dr. Beauchamp and myself and this note is written on her behalf (Mariella Uribe) Mariella Uribe Nov 23, 2016 19:19 Sanjana Beauchamp MD Nov 23, 2016 22:11
[2016-11-23 20:00] VITALS: BP 153/88; PULSE 84; RESP 18; TEMP 97.8; O2SAT 95
[2016-11-24] VITALS: BP 156/88; PULSE 74; RESP 17; TEMP 97; O2SAT 97
[2016-11-24 04:00] VITALS: BP 153/88; PULSE 77; RESP 18; TEMP 97.8; O2SAT 96
[2016-11-24 06:49] LABS: ANION GAP 7 MEQ/L (5-15); AST (GOT) 17 U/L (15-37); BICARBONATE 26.5 MEQ/L (21.0-32.0); BLOOD UREA NITROGEN 6 MG/DL (7-18); CHLORIDE 107 MEQ/L (98-107); GLOMERULAR FILTRATION RATE 150 ML/MIN (>89); POTASSIUM 3.5 MEQ/L (3.5-5.1); SODIUM (NA) 140 MEQ/L (136-145)
[2016-11-24 06:50] LABS: ALT (GPT) 22 U/L (10-53)
[2016-11-24 06:52] LABS: ALKALINE PHOSPHATASE 111 U/L (45-117); TOTAL BILIRUBIN ADULT 0.6 MG/DL (0.2-1.0)
[2016-11-24] MEDS: SODIUM CHLOR 0.9% 1000 ML INJ 1,000 ML IV SCH (07:21)
[2016-11-24] MEDS: DOCUSATE SODIUM 50 MG/SENNA 8.6 MG TAB PO SCH (07:49)
[2016-11-24] MEDS: SODIUM CHLORIDE 0.9% FLUSH 10 ML FLUSH IV FLUSH SCH (07:49)
[2016-11-24 08:00] VITALS: BP 158/85; PULSE 80; RESP 20; TEMP 97.7; O2SAT 96
[2016-11-24] MEDS ORDERED: PANTOPRAZOLE SOD 40 MG DELAYED RELEASE TAB PO SCH (09:00)
[2016-11-24] MEDS: HEPARIN SODIUM - SQ 10,000 UNITS/ML VIAL SQ SCH (10:51)
[2016-11-24] MEDS ORDERED: PANT40TA3 PO (11:44)
--- NOTE | 2016-11-24 11:45 | HHI.DCPOC ---
Discharge Care Plan Diagnosis: (1) Pancreatitis Your Health Problems Are: Appetite Changes Irregular Bowel Function Goals to Promote Your Health * To prevent worsening of your condition and complications * To maintain your health at the optimal level Directions to Meet Your Goals Take your medications as prescribed Follow your dietary instruction Follow activity as directed Keep your appointments as scheduled Take your immunizations and boosters as scheduled If your symptoms worsen call your PCP, if no PCP go to Urgent Care Center or Emergency Room Smoking is Dangerous to Your Health. Avoid second hand smoke Call the 24-hour hour crisis hotline for domestic abuse at Bia Cohen. [facility] Nov 24, 2016 11:45
--- NOTE | 2016-11-24 11:48 | HHI.DS ---
Discharge Summary Admission Date Nov 22, 2016 at 14:46 Discharge Date: Nov 24, 2016 Admitting Diagnosis pancreatitis (1) Pancreatitis (2) Rheumatoid arthritis (3) Elevated blood pressure reading (4) Leukocytosis Procedures S/P MRCP 11/22 CBC/BMP: 11/22/16 0710 11/24/16 0548 Significant Findings Laboratory Tests Test 11/21/16 11/22/16 11/24/16 12:52 07:10 05:48 Urine Specific [place] GREATER THAN 1.050 (1.002-1.035) Urine Protein 30 mg/dL (NEG-TRACE) Urine Ketones 80 mg/dL (NEG) Urine Leukocyte Esterase SMALL (NEG) Urine WBC 6 /hpf (0-5) Urine Bacteria OCC /hpf (NONE) White Blood Count 14.8 TH/MM3 (4.0-11.0) Neutrophils (%) (Auto) 80.4 % (16.0-70.0) Lymphocytes (%) (Auto) 8.5 % (9.0-44.0) Monocytes (%) (Auto) 10.2 % (0.0-8.0) Neutrophils # (Auto) 11.9 TH/MM3 (1.8-7.7) Monocytes # (Auto) 1.5 TH/MM3 (0-0.9) Creatinine 0.41 MG/DL 0.42 MG/DL (0.50-1.00) (0.50-1.00) Total Bilirubin 2.0 MG/DL (0.2-1.0) Direct Bilirubin 0.8 MG/DL (0.0-0.2) Indirect Bilirubin 1.2 MG/DL (0.0-0.8) Albumin 2.5 GM/DL 2.6 GM/DL (3.4-5.0) (3.4-5.0) Blood Urea Nitrogen 6 MG/DL (7-18) Total Protein 6.1 GM/DL (6.4-8.2) Imaging Last Impressions Cholangiopancreatography MRI 11/22/16 0000 Signed Impressions: Service Date/Time: Tuesday, November 22, 2016 09:43 - CONCLUSION: 1. The biliary tree has a normal appearance in this patient post cholecystectomy. No stones are visualized. 2. Inflammatory changes around the head and uncinate process of the pancreas characteristic of acute pancreatitis. Avinash Gonzalez MD Abdomen/Pelvis CT 11/21/16 0000 Signed Impressions: Service Date/Time: November 09:30 - CONCLUSION: 1. Findings consistent with mild pancreatitis without evidence for peripancreatic fluid collection, pancreatic necrosis or other complications. Mild pancreatitis based on CT severity index of 2 (2: 2. inflamation without collection, 0:no necrosis). Reji Romo MD Hospital Course This is pleasant 66-year-old white female who was in her usual state of health up until approximately 4 days ago. She stated that she started an acute onset of abdominal pain. Noted to be generalized in her upper abdomen. She stated that the pain radiated into her back. Described it as a burning, sharp burning sensations. The patient did note some mild grade fever approximately 100. She did have some mild nausea but no vomiting. She stated no weight loss and no acute changes in her appetite, up until these past few days. The patient does have a significant history of rheumatoid arthritis and sees her assembly technician for follow up appointments as an outpatient. She takes her medications for her Rheumatoid arthritis. Which is Cimzia, 400 mg subcutaneously every month and Rafuvo 0.8, subcutaneously every seven days. The patient denied any chest pain, no shortness of breath, She denied any previous abdominal pain or history of abdominal issues. She denied any headache. The patient according to the record did see her PCP yesterday and had blood work and was due to have a CT scan but stated that pain worsened and she came to the emergency room for further evaluation. DIAGNOSTIC DATA: White blood count 15.6, red blood cells 5.04, hemoglobin 15, hematocrit 44.8, neutrophil percentage left shift, 84.1. Lymphocytes 8.1. Chemistry sodium 137 potassium for a point chloride 105, CO2 23.4, amnion gap 9, BUN 12, creatinine 0.53, glomerular filtration rate 115, random glucose 112, calcium 9.2, total bilirubin 1.8, alkaline phosphatase 122, AST 22, ALT 30, total protein 7.8, albumin 3.5. Amylase 59, lipase 178. Urine is yellow clear, negative for glucose, occult blood and not in the right and small amount of leukocyte esterase was urobilinogen to occasional bacteria to be gravity greater than 1.050, pH of 6.5. IMAGING STUDIES Abdomen, pelvis CT findings consistent with mild pancreatitis without evidence of pancreatic fluid collection pancreatic necrosis or other complications. This was placed on a CT severity index of 2, inflammation without collection, no necrosis. Pt. was admitted for: 1. Pancreatitis. 2. History of rheumatoid arthritis. 3. Leukocytosis, probably secondary to number 1. 4. Abdominal pain radiating into the lower back, failed outpatient treatment, pain uncontrollable. 5. Elevated BP, no hx of HTN During the course of the hospitalization, the following took place: Patient put on IV fluids, clear liquid diet. Gastroenterology was consulted Appreciated GI input, work initiated. S/P MRCP 11/22, evidence of pancreatitis no clear evidence for pancreatitis obstruction vs med induced. Lipase was normal IGG 1150, lipid prof okay has hx of RA symptoms resolving, lipase normal Started on Protonix yesterday Diet was advanced, she tolerated well. She was put on low-fat diet Per GI, if she tolerated diet well, okay to go Patient stable, tolerated diet. WBC trending down No evidence of infection. Elevated BP, no hx of HTN Continue Vasotec PRN Blood pressure improved, likely elevated due to pain. Heparin for DVT prophylaxis Patient stable for discharge Discharged home Follow up with GI and rheumatology. Diet low-fat Activity as tolerated Pt Condition on Discharge: Stable Discharge Disposition: Discharge Home Discharge Instructions DIET: Follow Instructions for: Heart Healthy Diet Activities you can perform: Weight Bearing as [place] Follow up Referrals: Gastroenterology with Sanjana Beauchamp MD New Medications: Pantoprazole (Pantoprazole) 40 Mg Tab 40 MG PO DAILY Heartburn Management #30 Ref 1 TAB Continued Medications: Certolizumab Pegol Inj (Cimzia (2 syringe) Kit Inj) 200 Mg/Ml Kit 400 MG SQ Q30D Administer 2 syringes (400 mg) to separate sites. KIT Methotrexate (Antirheumatic) (Rasuvo) 20 Mg/0.4 Ml Inj 0.8 ML SQ Q7D Bia CohenP Nov 24, 2016 11:48
[2016-11-24 12:46] VITALS: BP 139/79; PULSE 74; RESP 20; TEMP 97.6; O2SAT 95
--- NOTE | 2016-11-24 13:32 | HHI.GIFU ---
GI Follow-up Note Consult Follow-up Subjective: Patient laying in bed comfortably, feeling better, ready to be discharged.Tolerated diet well.No indication of CBD stone , or any other pathology.IGg4 pending Objective: PHYSICAL EXAMINATION: Vitals signs stable No fever Vital Signs Date Time Temp Pulse Resp B/P Pulse Ox O2 Delivery O2 Flow Rate FiO2 11/24/16 12:46 97.6 74 20 139/79 95 11/24/16 08:00 97.7 80 20 158/85 96 HEENT: Pupils round and reactive to light; normocephalic; atraumatic; no jaundice. Throat is clear. NECK: Neck is supple, no JVD, no lymphadenopathy. CHEST: Chest is clear to auscultation and percussion. CARDIAC: Regular rate and rhythm with no murmur gallop or rubs. ABDOMEN: Soft, nondistended, nontender; no hepatosplenomegaly; bowel sounds are present in all four quadrants. EXTREMITIES: No clubbing, cyanosis, or edema. SKIN: Normal; no rash; no jaundice. PARK ACTIVITIES COORDINATOR: No focal deficits; alert and oriented times three. Available Data (labs, X- Rays, Procedues) : Laboratory Tests Test 11/24/16 05:48 Sodium Level 140 MEQ/L Potassium Level 3.5 MEQ/L Chloride Level 107 MEQ/L Carbon Dioxide Level 26.5 MEQ/L Anion Gap 7 MEQ/L Blood Urea Nitrogen 6 MG/DL Creatinine 0.42 MG/DL Estimat Glomerular Filtration 150 ML/MIN Rate Random Glucose 81 MG/DL Calcium Level 8.8 MG/DL Total Bilirubin 0.6 MG/DL Aspartate Amino Transf 17 U/L (AST/SGOT) Alanine Aminotransferase 22 U/L (ALT/SGPT) Alkaline Phosphatase 111 U/L Total Protein 6.1 GM/DL Albumin 2.6 GM/DL ASSESSMENT/PLAN: acute pancreatis -etiology not clear at this time-no history of etoh use , mrcp- no indication of cbd stone, possible medication induced vs autoimmune abdominal pain-improved elevated lfts -possible secondary edema caused by pancreatitis-improved Recommendations ok to dc home from gi point fu gi in 2-4 weeks low fat diet, no etoh will need to discuss with her roving winder as this can be potential medication induced fu igg4 levels trial of pancreatic/digestive enzymes otc with meals and snacks if work-up negative consider eus op It was a pleasure seeing Raquel Palomares Thank you for this consult. Entered by: Sanjana Cunningham MD Nov 24, 2016 13:32
--- NOTE | 2016-11-24 13:46 | HHI.PR ---
Subjective Subjective Remarks Tolerating low-fat diet well, no abdominal pain, no nausea, no vomiting moving bowels no fever no sob, no cp Blood pressure improved Anxious to go home Review of Systems Constitutional Constitutional Remarks 12 point ros completed, negative except as noted above Vitals/Results Intake & Output 11/23/16 11/23/16 11/24/16 14:59 22:59 06:59 Intake Total 420 ml 240 ml 240 ml Output Total 2 ml Balance 420 ml 240 ml 238 ml Intake Oral 420 ml 240 ml 240 ml Output Urine Total 2 ml # Voids 1 1 # Bowel Movements 1 0 0 Vital Signs Vital Signs Date Time Temp Pulse Resp B/P Pulse Ox O2 Delivery O2 Flow Rate FiO2 11/24/16 12:46 97.6 74 20 139/79 95 11/24/16 08:00 97.7 80 20 158/85 96 11/24/16 04:00 97.8 77 18 153/88 96 11/24/16 00:00 97.0 74 17 156/88 97 11/23/16 20:00 97.8 84 18 153/88 95 11/23/16 16:50 97.6 68 19 186/94 95 CBC/BMP: 11/22/16 0710 11/24/16 0548 Lab Results Laboratory Tests Test 11/24/16 05:48 Sodium Level 140 MEQ/L Potassium Level 3.5 MEQ/L Chloride Level 107 MEQ/L Carbon Dioxide Level 26.5 MEQ/L Anion Gap 7 MEQ/L Blood Urea Nitrogen 6 MG/DL Creatinine 0.42 MG/DL Estimat Glomerular Filtration 150 ML/MIN Rate Random Glucose 81 MG/DL Calcium Level 8.8 MG/DL Total Bilirubin 0.6 MG/DL Aspartate Amino Transf 17 U/L (AST/SGOT) Alanine Aminotransferase 22 U/L (ALT/SGPT) Alkaline Phosphatase 111 U/L Total Protein 6.1 GM/DL Albumin 2.6 GM/DL Physical Exam General General Appearance: Well Developed, Well Nourished, No Acute Distress, Comfortable Eyes Eye Exam: Pupils Equal, Pupils Reactive Ears & Nose Ears & Nose Exam: Nasal Mucosa [place] Throat Throat Exam: Oral Mucosa [place] & Moist Neck Neck Exam: Neck Supple Pulmonary Resp Exam: Clear Bilaterally Cardiology CV Exam: Regular Gastrointestinal/Abdomen GI Exam: Soft, Non-Tender, Bowel Sounds Present, Positive Bowel Movement, Non- Distended Musculoskeletal MS Exam: Joints Intact Integumentary Skin Exam: Clear, Warm, Dry, Intact Extremeties Extremities Exam: No Edema, Pedal Pulses Palpable Neurologic Neuro Exam: Alert, Awake, Oriented, Speech Clear, Moving All Extremities, No Focal Deficits Psychiatric Psych Exam: Appropriate Responses VTE Prophylaxis VTE Prophylaxis Device: SCDs VTE Prophylaxis Meds: Heparin PUD Prophylasis PUD Prophylaxis: Protonix Assessment/Plan Assessment/Plan 1. Pancreatitis. 2. History of rheumatoid arthritis. 3. Leukocytosis, probably secondary to number 1. 4. Abdominal pain radiating into the lower back, failed outpatient treatment, pain uncontrollable. 5. Elevated BP, no hx of HTN Plan continue with IVF appreciate GI input S/P MRCP 11/22, evidence of pancreatitis no clear evidence for pancreatitis obstruction vs med induced. 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 WBC trending down Elevated BP, no hx of HTN Continue Vasotec PRN Blood pressure improved Heparin for DVT prophylaxis Patient stable for discharge Discharge home today Follow up with GI Diet low-fat Activity as tolerated D/W RN D/W Dr. Agarwal D/W pt This patient was seen by myself and Dr. Agarwal, this note is written on her behalf. Discharge Minutes: 45 Bia Cohen Nov 24, 2016 13:46
[2016-11-27 03:52] LABS: IGG SUBCLASSES 4 12.6 mg/dL (4-86)
== END 2016-11-24 15:46 | disposition home or self-care (01) | DRG 440 ==
LOC: NEPE 08:06 → NEDA 10:24 → NEPHCDU 12:50 → OBSVTOIN 11-22 14:46 → HOCB 11-23 11:33
PROVIDERS: ADMIT Specialist; ATTEND Specialist
DX: K85.90 Acute pancreatitis without necrosis or infection, unspecified (principal); I10 Essential (primary) hypertension; M06.9 Rheumatoid arthritis, unspecified; M13.0 Polyarthritis, unspecified; Z79.899 Other long term (current) drug therapy; Z96.641 Presence of right artificial hip joint; Z96.651 Presence of right artificial knee joint
CPT/HCPCS: 74177; 74181; 76377; 80048; 80053; 80061; 80076; 81001; 82150; 82784; 82787; 83690; 85025; G0378; J1644; J2060; J2405; J7030; Q9967

== ENCOUNTER → 2017-08-29 | Outpatient (CLI) | payer MEDICARE, BC ==
[~2017-08-29] MED LIST changes: -ASA PO; +CIMZ200K SQ; -COUM5TAB PO; +CPMMACHINE; +ECASA81 PO; -ETANERCEPT IM; +GABA300C5 PO; -HYDR200T42 PO; -LORT7.5T3 PO; +METH0.35 SQ; +MULT-65 PO; -NEUR600T PO; +OXYC1TAB63 PO; +PANT40TA3 PO; -TAB-TAB PO; +WALKER WHEELS/F1 MIS; -iron PO; -methotrexate SQ
[2017-08-29 09:22] LABS: AUTOMATED NEUTROPHIL # 4.5 TH/MM3 (1.8-7.7); BASOPHIL # 0.1 TH/MM3 (0-0.2); BASOPHIL % 0.8 % (0.0-2.0); EOSINOPHIL # 0.2 TH/MM3 (0-0.4); EOSINOPHIL % 2.3 % (0.0-4.0); HEMATOCRIT 41.8 % (35.0-46.0); HEMOGLOBIN 14.1 GM/DL (11.6-15.3); LYMPHOCYTE # 1.6 TH/MM3 (1.0-4.8); MEAN CELL VOLUME 87.4 FL (80.0-100.0); MEAN CORPUSCULAR HEMOGLOBIN 29.5 PG (27.0-34.0); MEAN CORPUSCULAR HGB CONC 33.8 % (32.0-36.0); MEAN PLATELET VOLUME 8.9 FL (7.0-11.0); MONO % 6.6 % (0.0-8.0); MONOCYTE # 0.4 TH/MM3 (0-0.9); NEUT % 66.3 % (16.0-70.0); PLATELET COUNT 271 TH/MM3 (150-450); RED BLOOD COUNT 4.78 MIL/MM3 (4.00-5.30); WHITE BLOOD COUNT 6.7 TH/MM3 (4.0-11.0)
[2017-08-29 09:23] LABS: BILIRUBIN, URINE NEG (NEG); BLOOD, URINE NEG (NEG); GLUCOSE,URINE NEG (NEG); KETONE, URINE NEG (NEG); MUCUS URINE FEW /lpf (OCC); NITRITE,URINE NEG (NEG); URINE COLOR YELLOW (YELLW/STRAW); URINE LEUKOCYTE ESTERASE NEG (NEG)
[2017-08-29 09:35] LABS: PROTHROMBIN TIME - PATIENT 10.4 SEC (9.8-11.6)
[2017-08-29 09:42] LABS: BICARBONATE 26.2 MEQ/L (21.0-32.0); CALCIUM 9.2 MG/DL (8.5-10.1); CREATININE 0.57 MG/DL (0.50-1.00)
--- NOTE | 2017-08-29 13:51 | EKG ---
Date Performed: 08/29/2017 Time Performed: 08:38:27 PTAGE: 67 years EKG: Sinus rhythm WITH FIRST DEGREE AV BLOCK LOW QRS VOLTAGE IN PRECORDIAL LEADS POSSIBLE INFERIOR MYOCARDIAL INFARCTI ON, PROBABLY OLD WITH POSTERIOR EXTENSION ABNORMAL ECG PREVIOUS TRACING 05/15/10 Since the previous tracing, no significant change noted DOCTOR: Ottoniel Abbott Interpretating Date/Time 08/29/2017 13:47:27
== END ==
LOC: CPRE 08:13
PROVIDERS: ATTEND Orthopaedic Surgery Orthopaedic Surgery of the Spine
DX: Z01.812 Encounter for preprocedural laboratory examination (principal); Z01.810 Encounter for preprocedural cardiovascular examination; M17.12 Unilateral primary osteoarthritis, left knee; I44.0 Atrioventricular block, first degree; Z79.01 Long term (current) use of anticoagulants
CPT/HCPCS: 36415; 80048; 81001; 85025; 85610; 85730; 93005

== ENCOUNTER 2017-09-09 05:29 | Inpatient (IN) | payer MEDICARE, BC ==
[~2017-09-09] VITALS: Ht 166.6 cm; Wt 94.0 kg
[~2017-09-09 05:29] MED LIST changes: -CPMMACHINE; -ECASA81 PO; -MULT-65 PO; -OXYC1TAB63 PO; -WALKER WHEELS/F1 MIS
[2017-09-09] MEDS ORDERED: CHLORHEXIDINE GLUCONATE 2 % 1 PACK (2 CLOTHS) TOPICAL PRN (06:00)
[2017-09-09] MEDS ORDERED: SODIUM CHLORID 0.9% 500 ML IV PRN (06:00)
[2017-09-09] MEDS ORDERED: POVIDONE IODINE 7.5% SCRUB 118 ML BOTTLE TOPICAL SCH (06:00)
[2017-09-09] MEDS ORDERED: ceFAZolin 2 GM PREMIX 50 ML IV SCH (06:00)
[2017-09-09] MEDS ORDERED: EXPAREL PERI-ARTICULAR INJECTION (TOTAL VOL. 60 ML) P-ARTICULR SCH ×2 (06:00)
[2017-09-09] MEDS ORDERED: INSULIN HUMAN REGULAR 1,000 UNITS/10 ML VIAL SQ PRN (06:00)
[2017-09-09] MEDS ORDERED: VANCOMYCIN 1 GM/200 ML INJ 200 ML IV SCH (06:00)
[2017-09-09] MEDS ORDERED: METOPROLOL TARTRATE 25 MG TAB PO PRN (06:00)
[2017-09-09] MEDS ORDERED: TRANEXAMIC ACID INJ 940 MG in SODIUM CHLORIDE 0.9% INJ 100 ML IV SCH (06:00)
[2017-09-09] MEDS ORDERED: LACTATED RINGER'S 1000 ML IV PRN (06:00)
[2017-09-09] MEDS ORDERED: POVIDONE IODINE 5% (ANTISEPSIS KIT) 4 APPLICATIONS EACH NARE PRN (06:00)
[2017-09-09] MEDS ORDERED: MULT-65 PO (06:36)
[2017-09-09] MEDS ORDERED: ACETAMINOPHEN 1000 MG/100 ML 100 ML IV ONE (06:41)
[2017-09-09] MEDS ORDERED: BUPIVACAINE HCL PF 0.5% 30 ML VIAL ONE (06:42)
[2017-09-09] MEDS ORDERED: DEXMEDETOMIDINE HCL 200 MCG/2 ML VIAL ONE (06:43)
[2017-09-09] MEDS ORDERED: ROPIVACAINE 0.5% PF INJ 30 ML VIAL ONE (07:04)
[2017-09-09] MEDS ORDERED: BUPIVACAINE/EPINEPHRINE 0.25% 50 ML VIAL ONE (07:06)
[2017-09-09] MEDS ORDERED: GENTAMICIN SULFATE 80 MG/2 ML VIAL ONE (07:06)
[2017-09-09] MEDS ORDERED: BUPIVACAINE PF 0.75% DEX-WATER INJ 2 ML AMP ONE (09:11)
[2017-09-09] MEDS ORDERED: PROPOFOL 200 MG/20 ML AMP ONE (09:11)
[2017-09-09] MEDS ORDERED: NALOXONE HCL 0.4 MG/ML AMP IV PUSH PRN (09:30)
[2017-09-09] MEDS ORDERED: oxyCODONE/ACETAMINOPHEN 5 MG/325 MG TAB PO PRN (09:30)
[2017-09-09] MEDS ORDERED: Post-op Orders (for Pharmacy) XX ONE (09:30)
[2017-09-09] MEDS ORDERED: MORPHINE SULFATE 8 MG/ML INJ IM PRN (09:30)
[2017-09-09] MEDS ORDERED: PANTOPRAZOLE SOD 40 MG DELAYED RELEASE TAB PO PRN (09:30)
--- NOTE | 2017-09-09 09:34 | PD.OP ---
cc: Ino Ventura MD Operative Report Date of Surgery: September 09, 2017 Preoperative Diagnosis: Osteoarthritis left knee Postoperative Diagnosis: Procedure: Left total knee replacement arthroplasty Anesthesia: Spinal Surgeon: Ino Ventura Electrophysiologist(s): SAMIA Wolf Operation and Findings: EBL: 100 cc INDICATION: This patient presents with long-standing arthritis of the knee. The patient has range of motion from extension 0-95 flexion. Attachment record documents conservative measures. The patient now presents for surgical treatment. NOTE: Fallon Wolf PA-C was present for the entire surgical procedure as my anesthetic assistant. In my medical opinion her skill and care was necessary for proper management of this patient. TOURNIQUET TIME: 62 minutes COMPANY: [employer] FEMUR: Size 5, posterior stabilized TIBIA: Size 5, fixed-bearing PATELLA: 32 mm POLYETHYLENE INSERT: 11 mm PROCEDURE: This patient was brought the operating room and anesthetized in the supine position. The patient was positioned supine on the table. The tourniquet was placed about the thigh, and the leg was scrubbed with alcohol followed by Hibiclens followed by ChloraPrep and draped sterilely. A timeout was done, and antibiotics were given. After exsanguination the tourniquet was inflated to 250 mmHg. An anterior incision was made and a median parapatellar arthrotomy was performed. The patella was released laterally and subluxed allowing freehand cut of the patella which was then sized. A metal cap was placed over the exposed patellar surface for protection. A agricultural pilot hole was placed in the distal femur allowing a 5 valgus cut removing 10 mm from the distal femur. Anterior posterior and chamfer cuts were made. The posterior stabilize osteotomy was made. The attention was directed to the tibia. Retractors were positioned. The external alignment guide was used allowing the lateral tibia to be used as referencing guide and cut utilizing an oscillating saw taking care to avoid any injury to the surrounding soft tissues. This was sized properly. Trial reduction showed that the insert fit nicely. The patient had range of motion extension 0 flexion 125. A medial release was not necessary. The bony surfaces prepared. On the back table 2 packets of methylmethacrylate were mixed. The components were cemented. Excess cement was removed. The tourniquet let down and hemostasis was controlled. The final plastic insert was inserted. Range of motion was the same as previously noted. A drain was brought through a separate stab incision. The arthrotomy was repaired with interrupted #1 Vicryl suture, subcutaneous tissue 2-0 Vicryl suture and skin with metallic dandre A sterile dressing was applied. Sponge counts, needle counts and instrument counts were all correct. The patient tolerated procedure well and was taken to recovery in satisfactory condition. FINDINGS: There was severe osteoarthritis of the knee. There was a preoperative limitation in flexion. Posterior osteophytes were removed. The posterior capsule was excised with the posterior cruciate ligament. Final balancing was excellent. The patient's range of motion intraoperatively was extension 0 flexion 125. There is no complication that was noted Ino Ventura MD September 09, 2017 09:34
[2017-09-09] MEDS ORDERED: ECASA81 PO (09:37)
[2017-09-09] MEDS ORDERED: OXYC1TAB63 PO (09:37)
[2017-09-09] MEDS ORDERED: MIDAZOLAM HCL 2 MG/2 ML VIAL ONE ×2 (09:56)
[2017-09-09] MEDS ORDERED: DO NOT ADM ANY ANTICOAGULANT DRUGS PRN (10:15)
[2017-09-09] MEDS: LACTATED RINGER'S 1000 ML INJ 1,000 ML IV SCH ×2 (10:30→21:59)
--- NOTE | 2017-09-09 10:33 | RADRPT ---
EXAM DATE/TIME: 09/09/2017 10:52 [facility] COMPARISON: No previous studies available for comparison. INDICATIONS : Post op left knee surgery. MEDICAL HISTORY : None. SURGICAL HISTORY : Total knee replacement, right. Cholecystectomy. Hip replacements bilateral. ENCOUNTER: Initial ACUITY: 1 day PAIN SCORE: 0/10 LOCATION: Left Knee. FINDINGS: Two view examination of the left knee demonstrates a total knee arthroplasty The components are appropriately positioned. A KINDRA type drain is seen in the region of the suprapatell ar fossa. No fracture. CONCLUSION: Appropriate postoperative appearance of the left knee status post total arthroplasty. Armond Carvalho MD on September 09, 2017 at 10:27 Board Certified Radiologist. This report was verified electronically.
[2017-09-09] MEDS ORDERED: *morphine SULFATE 4 MG/ML PERIprocedure ONLY ONE ×2 (10:37→12:22)
[2017-09-09] MEDS ORDERED: ASPIRIN EC 81 MG TABEC PO ONE (11:00)
[2017-09-09] MEDS ORDERED: ONDANSETRON HCL 4 MG/2 ML VIAL IV PUSH ONE (12:00)
[2017-09-09] MEDS ORDERED: DEXAMETHASONE SOD PHOS 4 MG/ML VIAL IV ONE (12:00)
[2017-09-09] MEDS ORDERED: LACTATED RINGER'S 1000 ML INJ 1,000 ML IV ONE (12:00)
[2017-09-09] MEDS ORDERED: ceFAZolin INJ 1,000 MG VIAL IV ONE (12:00)
[2017-09-09] MEDS ORDERED: SODIUM CHLORIDE 0.9% 20 ML VIAL IV ONE (12:00)
[2017-09-09] MEDS ORDERED: GLYCOPYRROLATE 1 MG/5 ML SYRINGE IV PUSH ONE (12:00)
[2017-09-09] MEDS ORDERED: KETOROLAC TROMETHAMINE 30 MG/ML (IVP) VIAL IV PUSH ONE (12:00)
[2017-09-09] MEDS ORDERED: PROPOFOL 200 MG/20 ML AMP IV ONE (12:00)
[2017-09-09] MEDS: oxyCODONE/ACETAMINOPHEN 5 MG/325 MG TAB PO PRN ×2 (15:30→23:06)
[2017-09-09 16:00] VITALS: BP 143/73; PULSE 88; RESP 18; TEMP 98.3; O2SAT 92
[2017-09-09] MEDS: ASPIRIN EC 81 MG TABEC PO SCH (20:14)
[2017-09-09] MEDS: GABAPENTIN 300 MG CAP PO SCH (20:14)
[2017-09-09 20:20] VITALS: BP 149/82; PULSE 92; RESP 16; TEMP 98.5; O2SAT 93
[2017-09-09] MEDS ORDERED: TEMAZEPAM 15 MG CAP PO PRN (21:00)
[2017-09-09] MEDS ORDERED: CPMMACHINE (22:32)
[2017-09-09] MEDS ORDERED: WALKER WHEELS/F1 MIS (22:32)
--- NOTE | 2017-09-09 22:33 | HHI.DS ---
Discharge Summary Admission Date September 09, 2017 at 05:29 Discharge Date: September 11, 2017 Admitting Diagnosis see below Diagnosis: (1) Osteoarthritis of left knee Diagnosis: Principal ICD Codes: M17.12 - Unilateral primary osteoarthritis, left knee Procedures Left total knee arthroplasty Brief History This is a 67 year old female patient Pt Condition on Discharge: Stable Discharge Disposition: Disch w/ Home Health Serv Discharge Instructions Diet Instructions: As Tolerated, No Restrictions, High Fiber Diet Activities You Can Perform: Weight Bearing as [place] Activities to Avoid: Strenuous Activity Additional Activity Instruc.: TKA protocol New Medications: CPM-Continuous Passive Motion Machine (CPM-Continuous Passive Motion Machine) 1 Ea Device EA .XX DIRECTED, #1 0 Refills Walker with Front Wheels (Walker with Front Wheels) 1 Mis Mis EA .XX DIRECTED, #[address] (Aspirin DR) 81 Mg Tabdr 81 MG PO BID for Prevent Blood Clot, #60 TAB Oxycodone HCl/Acetaminophen (Oxycodone-Acetaminophen 5-325) 5 Mg-325 Mg Tablet 1 TAB PO Q4H PRN for Pain, #42 TAB Continued Medications: Certolizumab Pegol Inj (Cimzia (2 syringe) Kit Inj) 200 Mg/Ml Kit 400 MG SQ Q30D, KIT Administer 2 syringes (400 mg) to separate sites. Gabapentin (Gabapentin) 300 Mg Cap 300 MG PO BID, #60 CAP 0 Refills Methotrexate (Antirheumatic) (Rasuvo) 20 Mg/0.4 Ml Inj 0.8 ML SQ Q7D Multiple Vitamin (Multi-Vitamin Daily) 1 Tab Tab 1 TAB PO DAILY for Nutritional Supplement, TAB 0 Refills Pantoprazole (Pantoprazole) 40 Mg Tab 40 MG PO DAILY PRN for REFLUX, #30 TAB 0 Refills Nikole Medina September 09, 2017 22:33
--- NOTE | 2017-09-09 22:33 | HHI.DCPOC ---
Discharge Care Plan Diagnosis: (1) Osteoarthritis of left knee Your Health Problems Are: Difficulty with ADL Incision/Drains Swelling Goals to Promote Your Health * To prevent worsening of your condition and complications * To maintain your health at the optimal level Directions to Meet Your Goals Take your medications as prescribed Follow your dietary instruction Follow activity as directed Keep your appointments as scheduled Take your immunizations and boosters as scheduled If your symptoms worsen call your PCP, if no PCP go to Urgent Care Center or Emergency Room Smoking is Dangerous to Your Health. Avoid second hand smoke Call the 24-hour hour crisis hotline for domestic abuse at Nikole Medina September 09, 2017 22:33
--- NOTE | 2017-09-09 22:35 | HHI.FF ---
Face to Face Verification Diagnosis: (1) Osteoarthritis of left knee Physical Therapy Gait training, Safety evaluation, Transfer training, bed to chair Knee: Total knee, Protocol: Left, Gait training, Full weight bearing Canvas Knee Splint: When in bed & 2 pillows btw thighs Left LE Weight Bearing: WB as tolerated Additional Instructions PT 4 days/wk for 2 weeks. WBAT Left LE. TKA protocol. CPM bid as tolerated, 0 -60 w goal of 100 flexion. CKS when in bed/sleeping for 3-4 weeks postop. Nursing RN Days per Week: 2 x Week(s): 1 Dressing Changes: Do not change dressing Additional Instructions Vitals assessment. Dressing assessment - do not change unless saturated or erythema. I have seen patient Raquel Palomares on 09/09/17. My clinical findings support the need for the requested home health care services because: Limited ability to care for self High risk of falls I certify that my clinical findings support that this patient is homebound because: Post-op weakness Unsteady gait/balance Nikole Medina September 09, 2017 22:35
[2017-09-10 00:25] VITALS: BP 120/69; PULSE 90; RESP 17; TEMP 98.3; O2SAT 92
[2017-09-10 04:50] VITALS: BP 123/68; PULSE 85; RESP 16; TEMP 98.1; O2SAT 92
[2017-09-10] MEDS: GABAPENTIN 300 MG CAP PO SCH (07:32)
[2017-09-10] MEDS: ASPIRIN EC 81 MG TABEC PO SCH (07:32)
[2017-09-10] MEDS: oxyCODONE/ACETAMINOPHEN 5 MG/325 MG TAB PO PRN ×3 (07:33→16:35)
[2017-09-10 07:57] LABS: HEMOGLOBIN 11.9 GM/DL (11.6-15.3)
[2017-09-10 08:00] VITALS: BP 146/71; PULSE 84; RESP 18; TEMP 98.1; O2SAT 93
[2017-09-10] MEDS: LACTATED RINGER'S 1000 ML INJ 1,000 ML IV SCH (11:00)
[2017-09-10 12:00] VITALS: BP 137/68; PULSE 80; RESP 18; TEMP 98; O2SAT 93
--- NOTE | 2017-09-10 13:33 | PD.ORT.PN ---
Subjective Subjective Remarks Doing 'pretty well'. Some left calf pain. Has been up and walking 3-4 times already. Eager to get home. No new CP or SOB. No other complaints. Objective Vitals Vital Signs Date Time Temp Pulse Resp B/P (MAP) Pulse Ox O2 Delivery O2 Flow Rate FiO2 09/10/17 12:00 98.0 80 18 137/68 (91) 93 09/10/17 08:00 98.1 84 18 146/71 (96) 93 09/10/17 04:50 98.1 85 16 123/68 (86) 92 09/10/17 00:25 98.3 90 17 120/69 (86) 92 09/09/17 20:20 98.5 92 16 149/82 (104) 93 09/09/17 16:00 98.3 88 18 143/73 (96) 92 09/09/17 14:36 97.5 89 16 139/78 (98) 97 Nasal Cannula 2 09/09/17 14:00 88 17 133/75 (94) 97 Nasal Cannula 2 I/O 09/09/17 09/09/17 09/09/17 09/10/17 09/10/17 09/10/17 07:00 15:00 23:00 07:00 15:00 23:00 Intake Total 2630 ml 100 ml 820 ml Output Total 400 ml Balance 2230 ml 100 ml 820 ml Intake Oral 280 ml 720 ml IV Total 350 ml 100 ml 100 ml Other 2000 ml Output Urine Total 300 ml Estimated Blood Loss 100 ml # Voids 2 # Bowel Movements 0 Result Diagram: 09/10/17 0704 Procedures Left total knee arthroplasty Objective Remarks Sitting up in bed NAD With LEFT LE Knee dressing c/d/i, drain in place lateral, mild swelling knee to foot, no erythema +motor at, +sens, +nvi Mild positive homans on left, negative on right Assessment & Plan Ortho Post Op Day #: 1 Problem List: (1) Osteoarthritis of left knee ICD Codes: M17.12 - Unilateral primary osteoarthritis, left knee Qualifiers: Qualified Codes: M17.12 - Unilateral primary osteoarthritis, left knee Assessment and Plan pod#1 s/p L TKA Pain controlled. Continue PO meds as needed. Left calf pain - remove outer dressings. If pain continues, Doppler US left leg to rule out DVT. If negative, ok to d/c home w hhc later today. ASA 81mg bid. D/C lateral knee drain. Ok to redress drain site only. Hold incision dressing changes unless saturated. IS encouraged. D/C planning, HHC today or tomorrow pending doppler. F/U in 2 weeks as scheduled. Nikole Medina September 10, 2017 13:33
--- NOTE | 2017-09-10 15:52 | RADRPT ---
EXAM DATE/TIME: 09/10/2017 15:14 [facility] COMPARISON: No previous studies available for comparison. INDICATIONS : Left leg pain. MEDICAL HISTORY : Rheumatoid arthritis. Arthritis. GERD. SURGICAL HISTORY : Cholecystectomy. Bilateral hip replacements. Right knee replacement. Blood transfusions. ENCOUNTER: Initial ACUITY: 1 day PAIN SCORE: 6/10 LOCATION: Left leg. TECHNIQUE: Venous ultrasound of the leg was performed from the inguinal ligament to the proximal calf. Real-curry e, color Doppler and spectral tracing, compression and augmentation techniques were used. FINDINGS: There is normal compressibility of the deep venous system from the inguinal region to the proximal ca lf. No echogenic clot is seen in the lumen of the common femoral, femoral, popliteal, and posterior tibial veins. There is a normal response of the venous system to proximal and distal augmentation an d respiration. CONCLUSION: Normal examination. Avinash Whipple MD on September 10, 2017 at 15:49 Board Certified Radiologist. This report was verified electronically.
[2017-09-10 16:00] VITALS: BP 146/79; PULSE 88; RESP 18; TEMP 97.9; O2SAT 91
== END 2017-09-10 17:58 | disposition home health service (06) | DRG 470 ==
LOC: HSDI 05:29 → N06A 15:00
PROVIDERS: ADMIT Orthopaedic Surgery Orthopaedic Surgery of the Spine; ATTEND Orthopaedic Surgery Orthopaedic Surgery of the Spine
PROC: 0SRD0J9 Replacement of Left Knee Joint with Synthetic Substitute, Cemented, Open Approach (ICD-10-PCS; principal; 2017-09-09 07:20)
DX: M17.12 Unilateral primary osteoarthritis, left knee (principal); M06.9 Rheumatoid arthritis, unspecified; Z96.651 Presence of right artificial knee joint; Z96.643 Presence of artificial hip joint, bilateral
CPT/HCPCS: 73560; 85014; 85018; 86850; 86900; 86901; 86920; 93971; 94150; C1776; C9290; J0131; J0690; J1100; J1580; J1885; J2250; J2270; J2405; J2795; J3370; J7120; L1830